=== PATIENT | female | born 1935 | race Two or more races ===

== ENCOUNTER 2018-10-29 09:38 | Inpatient (IN) | payer BC, MEDICARE ==
[~2018-10-29] VITALS: Ht 152.4 cm; Wt 36.9 kg
[2018-10-29 11:36] LABS: Hematocrit 33.2 % (36.0-46.0); Hemoglobin 11.1 g/dL (12.2-16.2); Mean Corpuscular Hemoglobin 32.6 pg (28.0-32.0); Mean Corpuscular Hgb Conc. 33.4 g/dL (32.0-36.0); Mean Corpuscular Volume 97.7 fL (80.0-100.0); Platelet Count (auto) 153 10^3/uL (140-450); White Blood Cell 7.6 10^3/uL (4.4-10.8)
[2018-10-29 11:38] LABS: Basophils % (manual) 0 (0.0-2.0); Blast Cells 0; Promyelocytes % 0; Reactive Lymphocytes 0; Red Cell Distribution Width 25.3 % (11.8-14.3)
[2018-10-29 11:49] LABS: Albumin 3.6 g/dL (3.4-5.0); Calcium 9.6 mg/dL (8.5-10.1); Potassium 4.5 mmol/L (3.5-5.1)
[2018-10-29 11:53] LABS: INR 1.07 (0.9-1.15); Partial Thromboplastin Time 25.2 sec (23.78-33.04); Prothrombin Time 11.4 sec (9.27-12.13)
[2018-10-29 11:54] LABS: Bilirubin, Total 1.8 mg/dL (0.2-1.0); Total Protein 6.7 g/dL (6.4-8.2)
[2018-10-29 12:58] LABS: Urine Bacteria FEW /hpf (None Seen); Urine Blood TRACE /uL (Negative); Urine Specific Gravity 1.015 (1.001-1.035); Urine WBC 1 /hpf (0 - 5)
[2018-10-29] MEDS ORDERED: ASPirin-EC 81 mg tab PO ONE (13:15)
[2018-10-29 14:27] LABS: Band Neutrophils % (manual) 2; Eosinophils % (manual) 1 (0-7); Lymphocytes % (manual) 23 (10.0-50.0); Metamyelocytes % 1; Monocytes % (manual) 19 (0-12); Myelocytes % 4
[2018-10-29] MEDS ORDERED: HYDROcodone-ACET 5/325MG TAB PO PRN (15:15)
[2018-10-29] MEDS ORDERED: MORPHINE SULFATE 4 MG/ML SYR/VIAL IV PRN (15:15)
[2018-10-29] MEDS ORDERED: ACETAMINOPHEN 500 MG TAB PO PRN (15:15)
[2018-10-29] MEDS ORDERED: NITROGLYCERIN 0.4 MG SL TAB SL PRN (15:15)
[2018-10-29] MEDS ORDERED: ONDANSETRON HCL 4 MG/2 ML VIAL IV PRN (15:15)
[2018-10-29] MEDS ORDERED: MORPHINE SULF INJ 2 MG/ML SYRINGE 1ML IV PRN (15:15)
[2018-10-29 15:39] VITALS: BP 107/55
[2018-10-29] MEDS: IPRATROPIUM BROM 0.5 MG/2.5ML INH SOL NEB SCH (18:00)
[2018-10-29] MEDS ORDERED: AMIODARONE HCL 200 MG TAB PO ONE (18:00)
[2018-10-29] MEDS ORDERED: ENOXAPARIN SOD 60 MG/0.6 ML SYRINGE SC ONE (19:15)
[2018-10-29] MEDS ORDERED: ENOXAPARIN SOD 100 MG/1 ML SYRINGE SC ONE (19:15)
--- NOTE | 2018-10-29 20:10 | NUR ---
Telemetry admit from ER [place] admitted to Telemetry unit after SBAR received. Patient oriented to RUPAL KENDALL RN primary RN, unit, room, bed, and unit policies regarding patient care and visiting hours. Patient now on continuous telemetry monitoring, tele box # 11 and telemetry reading on arrival to unit is NSR. Patient placed on bedside oxygen 2L/min via nasal cannula, weighed by bedscale and encouraged to call if they need something. All questions and concerns addressed, patient verbalized understanding.
[2018-10-29 20:29] VITALS: BP 103/60
[2018-10-29] MEDS: ATORVASTATIN 20 MG TAB PO SCH (21:57)
[2018-10-29] MEDS: METOPROLOL TARTRATE 25 MG TAB PO SCH (21:59)
[2018-10-29] MEDS ORDERED: FURO20TA3 PO (23:49)
[2018-10-29] MEDS ORDERED: ALBU1AER4 IN (23:49)
[2018-10-29] MEDS ORDERED: POTA10TA51 PO (23:49)
[2018-10-29] MEDS ORDERED: BUDE0.253 IN (23:49)
[2018-10-29] MEDS ORDERED: METO-169 PO (23:49)
[2018-10-29 23:53] VITALS: BP 113/54
[2018-10-30] VITALS (7 sets, daily range): BP systolic 97–107; BP diastolic 48–55
--- NOTE | 2018-10-30 00:26 | NUR ---
Telemetry box #11 switched to telemetry box #29.
[2018-10-30 06:27] LABS: Hematocrit 28.4 % (36.0-46.0); Hemoglobin 9.7 g/dL (12.2-16.2); Mean Corpuscular Hgb Conc. 34.1 g/dL (32.0-36.0); Mean Corpuscular Volume 96.9 fL (80.0-100.0); Platelet Count (auto) 118 10^3/uL (140-450); Red Blood Cells 2.93 10^6/uL (4.0-5.20); White Blood Cell 6.4 10^3/uL (4.4-10.8)
--- NOTE | 2018-10-30 06:58 | NUR ---
Closing note Patient is resting in bed. No S/S of distress, pain, or SOB. Will endorse care to dayshift RN.
[2018-10-30 07:04] LABS: Calcium 9.9 mg/dL (8.5-10.1); Magnesium 2.5 mg/dL (1.6-2.6); Potassium 4.5 mmol/L (3.5-5.1)
[2018-10-30 07:11] LABS: Red Cell Distribution Width 24.2 % (11.8-14.3)
[2018-10-30 07:12] LABS: BUN/Creatinine Ratio 45.9; Band Neutrophils % (manual) 0; Basophils % (manual) 0 (0.0-2.0); Blast Cells 0; Metamyelocytes % 0; Myelocytes % 0; Promyelocytes % 0; Reactive Lymphocytes 0
[2018-10-30] MEDS: IPRATROPIUM BROM 0.5 MG/2.5ML INH SOL NEB SCH ×4 (08:28→19:37)
[2018-10-30] MEDS: FUROSEMIDE 20 MG/2 ML VIAL IV SCH (09:17)
[2018-10-30] MEDS: PANTOPRAZOLE 40 MG TAB PO SCH (09:18)
[2018-10-30] MEDS: METOPROLOL TARTRATE 25 MG TAB PO SCH ×2 (09:19→21:54)
[2018-10-30] MEDS: AMIODARONE HCL 200 MG TAB PO SCH (09:19)
[2018-10-30] MEDS: ASPirin 81 mg TAB PO SCH (09:20)
[2018-10-30 10:24] LABS: Eosinophils % (manual) 1 (0-7); Lymphocytes % (manual) 41 (10.0-50.0); Monocytes % (manual) 17 (0-12)
[2018-10-30] MEDS ORDERED: cefTRIAXone 1GM/50ML D5W 50 ML IV ONE (16:30)
--- NOTE | 2018-10-30 19:00 | NUR ---
OPEN SHIFT NOTE PATIENT ALERT AND ORIENTED X4, ON ROOM AIR, 20 GAUGE IN THE LEFT AC IS INTACT AND PATENT. NO COMPLAINTS OF PAIN AT THIS TIME. POC WAS DISCUSSED AND QUESTIONS ANSWERED. BED IS LOCKED IN LOWEST POSITION WITH SIDE RAILS UP X2 FOR SAFETY AND CALL LIGHT IS WITHIN REACH. WILL CONTINUE TO ROUND Q1HR AND PRN.
--- NOTE | 2018-10-30 20:02 | NUR ---
UA SENT TO LAB.
[2018-10-30] MEDS: ATORVASTATIN 20 MG TAB PO SCH (21:54)
[2018-10-31 04:30] VITALS: BP 94/52
[2018-10-31 06:57] LABS: Hematocrit 27.8 % (36.0-46.0); Hemoglobin 9.4 g/dL (12.2-16.2); Mean Corpuscular Hemoglobin 33.1 pg (28.0-32.0); Mean Corpuscular Hgb Conc. 33.7 g/dL (32.0-36.0); Platelet Count (auto) 116 10^3/uL (140-450); Red Blood Cells 2.83 10^6/uL (4.0-5.20); White Blood Cell 6.5 10^3/uL (4.4-10.8)
[2018-10-31 07:03] LABS: Calcium 9.9 mg/dL (8.5-10.1); Potassium 4.5 mmol/L (3.5-5.1)
[2018-10-31 07:05] LABS: BUN/Creatinine Ratio 34.3
[2018-10-31] MEDS: IPRATROPIUM BROM 0.5 MG/2.5ML INH SOL NEB SCH ×3 (07:08→18:06)
--- NOTE | 2018-10-31 07:15 | NUR ---
ASSUMED CARE OF PATIENT, AWAKE AND ALERT. RESPIRATORY ASSESSMENT FINDINGS OF EXPIRATORY WHEEZING, NOTIFIED ON- CALL HOSPITALIST. NEW ORDERS RECEIVED.
[2018-10-31 07:18] LABS: Red Cell Distribution Width 23.1 % (11.8-14.3)
[2018-10-31 07:19] LABS: Basophils % (manual) 0 (0.0-2.0); Blast Cells 0; Metamyelocytes % 0; Myelocytes % 0; Promyelocytes % 0; Reactive Lymphocytes 0
[2018-10-31] MEDS ORDERED: ALBUTEROL SULF 2.5 MG/0.5ML(0.5%) NEB SOLN NEB PRN (07:30)
[2018-10-31] MEDS ORDERED: IPRATROPIUM BROM 0.5 MG/2.5ML INH SOL NEB PRN (07:30)
[2018-10-31 08:00] VITALS: BP 99/52
[2018-10-31 09:00] VITALS: BP 108/58
[2018-10-31] MEDS: PANTOPRAZOLE 40 MG TAB PO SCH (10:00)
[2018-10-31] MEDS: FUROSEMIDE 20 MG/2 ML VIAL IV SCH (10:01)
[2018-10-31] MEDS: METOPROLOL TARTRATE 25 MG TAB PO SCH (10:02)
[2018-10-31] MEDS: AMIODARONE HCL 200 MG TAB PO SCH (10:02)
[2018-10-31] MEDS: ASPirin 81 mg TAB PO SCH (10:02)
[2018-10-31 11:10] LABS: Band Neutrophils % (manual) 4; Eosinophils % (manual) 1 (0-7); Lymphocytes % (manual) 17 (10.0-50.0); Monocytes % (manual) 31 (0-12)
[2018-10-31 13:00] VITALS: BP 99/45
[2018-10-31 14:22] VITALS: BP 108/58
[2018-10-31] MEDS ORDERED: cefTRIAXone 1GM/50ML D5W 50 ML IV SCH (16:00)
[2018-10-31 17:00] VITALS: BP 101/45
--- NOTE | 2018-10-31 18:00 | NUR ---
Discharge instructions given as ordered. Encourage to follow up with PMD as instructed. All questions and concerns addressed. Patient verbalized understanding. Medication reconciliation form completed and copy given to patient.IV removed with catheter intact, pressure dressing applied. Telemetry unit returned to ICU. Patient taken to vehicle via wheelchair with all personal belongings, accompanied by staff and family member. No distress noted at time of departure.
== END 2018-10-31 18:30 | disposition home or self-care (01) | DRG 291 ==
LOC: ER 09:38 → TELE 15:12 → TELE-WESTW 20:06
PROVIDERS: ADMIT Nurse Practitioner Acute Care; ATTEND Internal Medicine
DX: I50.43 Acute on chronic combined systolic (congestive) and diastolic (congestive) heart failure (principal); N17.0 Acute kidney failure with tubular necrosis; I48.92 Unspecified atrial flutter; I24.9 Acute ischemic heart disease, unspecified; I13.0 Hypertensive heart and chronic kidney disease with heart failure and stage 1 through stage 4 chronic kidney disease, or unspecified chronic kidney disease; E87.1 Hypo-osmolality and hyponatremia; D68.69 Other thrombophilia; I47.1 Supraventricular tachycardia; I48.0 Paroxysmal atrial fibrillation; I11.0 Hypertensive heart disease with heart failure; D46.9 Myelodysplastic syndrome, unspecified; J45.909 Unspecified asthma, uncomplicated; N18.9 Chronic kidney disease, unspecified; Z82.49 Family history of ischemic heart disease and other diseases of the circulatory system; Z79.899 Other long term (current) drug therapy
CPT/HCPCS: 36415; 71045; 80048; 80053; 80061; 81001; 83735; 83880; 84443; 84484; 85007; 85027; 85610; 85730; 87086; 93005; 93306; 94640; G0378; J0696